=== PATIENT | female | born 1990 | race Caucasian/White ===

== ENCOUNTER 2017-03-31 02:05 | Inpatient (IN) | payer OTHER ==
[2017-03-31 02:19] VITALS: BMI 20.9
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
[2017-03-31] MEDS ORDERED: ACETAMINOPHEN 1000 MG/100 ML VIAL (NON FORMULARY) IVPB ONE (02:45)
[2017-03-31] MEDS ORDERED: ACETAMINOPHEN INJECTION 100 ML IVPB ONE (03:04)
[2017-03-31 03:06] LABS: BASOPHIL 0.3 % (0-2.0); EOSINOPHIL 0.8 % (0-4.5); MCH 26.8 pg (25.7-33.7); MCHC 32.8 g/dl (32.0-36.0); MEAN CELL VOLUME 81.6 fl (80-96); MEAN PLT VOLUME 7.8 fl (7.5-11.1); NEUTROPHILS 55.3 % (42.8-82.8); PLATELET COUNT 199 K/MM3 (134-434); RDW 12.9 % (11.6-15.6); WHITE BLOOD COUNT 5.2 K/mm3 (4.0-10.0)
[2017-03-31 03:28] LABS: ANION GAP 5 (8-16); CALCIUM 8.7 mg/dL (8.5-10.1); CO2 29 mmol/L (21-32); CREATININE 0.6 mg/dL (0.55-1.02); GLUCOSE,RANDOM 106 mg/dL (74-106)
--- NOTE | 2017-03-31 04:24 | PDOC ---
Attending Attestation - Resident Resident Name: Jerel Souzaica - ED Attending Attestation I have performed the following: I have examined & evaluated the patient, The case was reviewed & discussed with the resident, I agree w/resident's findings & plan, Exceptions are as noted - HPI HPI: 03/31/17 04:22 26 yo F presenting to the ER with severe RLQ pain Pt states she has had vaginal bleeding for the past 2 weeks - initially, she had a period followed b spotting She had a sudden onset severe RLQ pain She is does not think that she is - Physicial Exam PE: 03/31/17 04:23 Pt appears to be in pain Right lower abd tenderness No abdominal distention - Critical Care Time Total Critical Care Time: 60 Critical Care Statement: The care of this patient involved high complexity decision making to prevent further life threatening deterioration of the patient 's condition and/or to evalute & treat vital organ system(s) failure or risk of failure. - Medical Decision Making 03/31/17 04:24 Will do labs Will do US Will give Tylenol for pain Will re assess 03/31/17 04:24 Laboratory Tests 03/31/17 03/31/17 03/31/17 02:45 02:57 02:57 WBC 5.2 Hgb 11.6 Hct 35.2 Plt Count 199 BUN 8 Creatinine 0.6 Beta HCG, Quant 6172.4 Serum , Qual Blood Type O POSITIVE 03/31/17 02:57 WBC Hgb Hct Plt Count BUN Creatinine Beta HCG, Quant Serum , Qual Positive Blood Type 03/31/17 04:46 Called by radiology Pt has 5 week 3 day in Right fallopian tube FHR 103 bpm 03/31/17 04:58 03/31/17 05:[address] Lorraine ASLHEY He will see her in the ER Admit to his service Discharge Disposition - Diagnosis Ectopic , tubal Qualifiers: Intrauterine status: without intrauterine Qualified Code(s) : O00.10 - Tubal without intrauterine - Discharge Dispostion Disposition: HOME Condition at time of disposition: Guarded Admit: Yes - Prescriptions
--- NOTE | 2017-03-31 09:51 | HP ---
Past Medical History - Primary Care Physician PCP:: Aneudy Peters - Admission Chief Complaint: RLQ pain, vaginal bleeding, History of Present Illness: 26 yo f c/o RLQ pain and vaginal bleeding for 3 weeks, positve test, sono live iup in rt tube .admitted for laparoscopy RT salpingectomy, risks of procedure blweeding, injury to vesseles, bowel, bladder , nerve, ,loss of allopian tube, infertility anesthesia risks, post op complication, disussed, ulternatives metothrexate discused , agreed to have salpingectomy History Source: Patient Limitations to Obtaining History: No Limitations - Past Medical History ...: 2 ...Para: 1 Additional OB History: post hemorrhage and PIH with last Infectious Disease: Yes: Other (had iud with PID, iud was removed) - Past Surgical History Hx Myomectomy: No Hx Transabdominal Cerclage: No - Smoking History Smoking history: Never smoked Have you smoked in the past 12 months: No - Alcohol/Substance Use Hx Alcohol Use: Yes (SOCIAL) - Social History History of Recent Travel: No Home Medications - Allergies Allergies/Adverse Reactions: Allergies Allergy/AdvReac Type Severity Reaction Status Date / Time No Known Allergies Allergy Verified 03/31/17 02:17 - Home Medications Home Medications: Ambulatory Orders NK [No Known Home Medication] 03/31/17 Review of Systems - Review of Systems Eyes: reports: No Symptoms HENT: reports: No Symptoms Neck: reports: No Symptoms Cardiovascular: reports: No Symptoms Respiratory: reports: No Symptoms Genitourinary: reports: Vaginal Bleeding Breasts: reports: No Symptoms Reported Musculoskeletal: reports: No Symptoms Integumentary: reports: No Symptoms Neurological: reports: No Symptoms Endocrine: reports: No Symptoms Psychiatric: reports: No Symptoms 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 Vital Signs: Vital Signs Temperature 99 F 03/31/17 07:57 Pulse Rate 66 03/31/17 07:57 Respiratory Rate 20 03/31/17 07:57 Blood Pressure 99/59 03/31/17 07:57 O2 Sat by Pulse Oximetry (%) 99 03/31/17 07:04 Constitutional: Yes: Well Nourished, No Distress, Calm Eyes: Yes: WNL, Conjunctiva Clear, EOM Intact HENT: Yes: WNL, Atraumatic, Normocephalic Neck: Yes: WNL, Supple, Trachea Midline Cardiovascular: Yes: WNL, Regular Rate and Rhythm Respiratory: Yes: WNL, Regular, CTA Bilaterally Gastrointestinal: Yes: WNL ...Rectal Exam: Yes: WNL Renal/: Yes: WNL Pelvis: Yes: WNL External Genitalia: Yes: Normal Internal Exam Deferred: No Vaginal Exam: Yes: Bleeding Cervix: Yes: Normal Uterus: Yes: Normal, Tender Adnexa: Tender: Right, Left, Not Palpable: Right, Left Breast(s): Yes: WNL Musculoskeletal: Yes: WNL Extremities: Yes: WNL Edema: No Integumentary: Yes: WNL Neurological: Yes: WNL, Alert, Oriented ...Motor Strength: WNL Psychiatric: Yes: WNL, Alert, Oriented Problem List - Problem (1) Ectopic , tubal Code(s): O00.10 - TUBAL WITHOUT INTRAUTERINE Qualifiers: Intrauterine status: without intrauterine Qualified Code(s): O00.10 - Tubal without intrauterine (2) Vaginal bleeding Code(s): N93.9 - ABNORMAL UTERINE AND VAGINAL BLEEDING, UNSPECIFIED Assessment/Plan plan d&C laparoscopic RT salpingectomy. RBA discussed
[2017-03-31] MEDS ORDERED: LIDOCAINE HCL/PF 2% SDV 5ML VIAL ONE (10:00)
[2017-03-31] MEDS ORDERED: ROCURONIUM BROMIDE 50 MG/5 ML VIAL ONE (10:01)
[2017-03-31] MEDS ORDERED: DEXAMETHASONE SOD PHOSPHATE 4 MG/1 ML VIAL ONE ×2 (10:01→10:37)
[2017-03-31] MEDS ORDERED: PROPOFOL 20 ML ONE (10:01)
[2017-03-31] MEDS ORDERED: ceFAZolin SODIUM 1 GM VIAL IVPB ONE (10:22)
[2017-03-31] MEDS ORDERED: ceFAZolin SODIUM 1 GM VIAL ONE (10:22)
[2017-03-31] MEDS ORDERED: NEOSTIGMINE METHYLSULFATE 0.5 MG/ML - 10 ML MDV ONE (10:43)
[2017-03-31] MEDS ORDERED: GLYCOPYRROLATE 0.2 MG/1 ML VIAL ONE (10:43)
[2017-03-31] MEDS ORDERED: ONDANSETRON 4 MG/2 ML VIAL IVPB PRN (11:24)
[2017-03-31] MEDS ORDERED: oxyCODONE HCL 5 MG TABLET PO PRN (11:24)
[2017-03-31] MEDS ORDERED: ELECTROLYTE-148 SOLN 1,000 ML IV SCH (11:30)
[2017-03-31] MEDS ORDERED: IBUPROFEN 800 MG/8 ML IJ IVPB ONE (11:54)
[2017-03-31] MEDS: IBUPROFEN 800 MG/8 ML IJ IVPB PRN ×2 (12:00→22:15)
[2017-03-31] MEDS ORDERED: HYDROmorphone HCL CARPU-JECT 1 MG/1 ML DISP.SYRIN IVPUSH PRN (12:05)
[2017-03-31] MEDS ORDERED: HYDROmorphone HCL CARPU-JECT 2 MG/1 ML DISP.SYRIN ONE (12:10)
[2017-03-31] MEDS ORDERED: PROMETHAZINE HCL 25 MG/1 ML VIAL IVPUSH PRN (12:21)
[2017-03-31 17:45] LABS: MCH 26.8 pg (25.7-33.7); MCHC 32.4 g/dl (32.0-36.0); MEAN CELL VOLUME 82.7 fl (80-96); NEUTROPHILS 93.1 % (42.8-82.8); PLATELET COUNT 172 K/MM3 (134-434); RDW 12.8 % (11.6-15.6); WHITE BLOOD COUNT 5.2 K/mm3 (4.0-10.0)
[2017-03-31] MEDS: DEXTROSE 5%-LACTATED RINGERS 1,000 ML IV SCH (20:40)
--- NOTE | 2017-03-31 22:24 | PN ---
Teaching Attending Note Name of Resident: Karine Crawley ATTENDING PHYSICIAN STATEMENT I saw and evaluated the patient. I reviewed the resident's note and discussed the case with the resident. I agree with the resident's findings and plan as documented. SUBJECTIVE: 26 yo F S/ P RT salpingectomy POD0, who presents with right chest wall pain. States pain started 1 hr ago and was sharp and constant. Pain did not vary with inspiration. No shortness of breath. No N/V/D. OBJECTIVE: Physical: VS: Vital Signs Period Temp Pulse Resp BP Sys/Jacques Pulse Ox Last 24 Hr 97.5 F-99 F 62-85 16-20 86-110/45-70 99-100 GEN: NAD, Resting in bed, able to speak full sentences HEENT: NCAT, PERRL CARD: RRR S1, S2 RESP: CTAB, Chest wall pain on right on palpation ABD: BSX4, NTD to palpation EXT: - C/C/E CBCD WBC 5.2 K/mm3 (4.0-10.0) 03/31/17 17:30 RBC 4.09 M/mm3 (3.60-5.2) 03/31/17 17:30 Hgb 11.0 GM/dL (10.7-15.3) 03/31/17 17:30 Hct 33.8 % (32.4-45.2) 03/31/17 17:30 MCV 82.7 fl (80-96) 03/31/17 17:30 MCHC 32.4 g/dl (32.0-36.0) 03/31/17 17:30 RDW 12.8 % (11.6-15.6) 03/31/17 17:30 Plt Count 172 K/MM3 (134-434) 03/31/17 17:30 MPV 8.0 fl (7.5-11.1) 03/31/17 17:30 CMP Sodium 139 mmol/L (136-145) 03/31/17 02:57 Potassium 4.0 mmol/L (3.5-5.1) 03/31/17 02:57 Chloride 105 mmol/L (98-107) 03/31/17 02:57 Carbon Dioxide 29 mmol/L (21-32) 03/31/17 02:57 Anion Gap 5 (8-16) L 03/31/17 02:57 BUN 8 mg/dL (7-18) 03/31/17 02:57 Creatinine 0.6 mg/dL (0.55-1.02) 03/31/17 02:57 Random Glucose 106 mg/dL (74-106) 03/31/17 02:57 Calcium 8.7 mg/dL (8.5-10.1) 03/31/17 02:57 EKG: NSR no acute ST-T changes ASSESSMENT AND PLAN: 26 F POD 0 S/P R.. Salphingectomy with chest wall pain 1.) Atypical Chest Pain- Most likley costochondritis - Recc. NSAIDS for chest wall pain - Trop/CXR - Will Monitor - Thank you for consult
--- NOTE | 2017-03-31 23:35 | CONSULT ---
Consultation: REQUESTING PROVIDER: CONSULT REQUEST: We have been asked to medically evaluate this patient for chest pain. HISTORY OF PRESENT ILLNESS: 26yo woman with PMH of asmtha, PID, s/p laparoscopic RT salpingectomy and D &C for ectopic earlier today who c/o chest pain radiating to her right side this evening. She described her chest as feeling "tight" with a sharp pain along RT costal margin for the past 1 hour. The pain is constant, but intermittent in severity, at its worst 8/10. Pain is worse when she inhales. She denies any prior similar episodes. She endorses SOB, but denies any palpitations, dizziness, or lightheadedness. No nausea or vomiting. No BM since the surgery, but she has passed gas. REVIEW OF SYSTEMS: CONSTITUTIONAL: Absent: fever, chills, diaphoresis, generalized weakness, malaise, loss of appetite, weight change HEENT: Absent: rhinorrhea, nasal congestion, throat pain, throat swelling, difficulty swallowing, mouth swelling, ear pain, eye pain, visual changes CARDIOVASCULAR: +chest pain Absent: chest pain, syncope, palpitations, irregular heart rate, lightheadedness , peripheral edema RESPIRATORY: Absent: cough, shortness of breath, dyspnea with exertion, orthopnea, wheezing, stridor, hemoptysis GASTROINTESTINAL: Absent: abdominal pain, abdominal distension, nausea, vomiting , diarrhea, constipation, melena, hematochezia GENITOURINARY: Absent: dysuria, frequency, urgency, hesitancy, hematuria, flank pain, genital pain MUSCULOSKELETAL: Absent: myalgia, arthralgia, joint swelling, back pain, neck pain SKIN: Absent: rash, itching, pallor HEMATOLOGIC/IMMUNOLOGIC: Absent: easy bleeding, easy bruising, lymphadenopathy, frequent infections ENDOCRINE: Absent: unexplained weight gain, unexplained weight loss, heat intolerance, cold intolerance NEUROLOGIC: Absent: headache, focal weakness or paresthesias, dizziness, unsteady gait, seizure, mental status changes, bladder or bowel incontinence PSYCHIATRIC: Absent: anxiety, depression, suicidal or homicidal ideation, hallucinations. PHYSICAL EXAMINATION Vital Signs 03/31/17 03/31/17 03/31/17 13:05 17:07 21:26 Temperature 97.5 F L 97.6 F 98.9 F Pulse Rate 67 63 62 Pulse Rate [ Left] Respiratory 18 16 18 Rate Blood Pressure 105/53 86/51 105/60 Blood Pressure [Left] O2 Sat by Pulse 100 100 Oximetry (%) GENERAL: Awake, alert, and fully oriented, in no acute distress. HEAD: Normal with no signs of trauma. EYES: Pupils equal, round and reactive to light, extraocular movements intact, sclera anicteric, conjunctiva clear. EARS, NOSE, THROAT: Oropharynx clear without exudates. Moist mucous membranes. NECK: Supple, no cervical LAD LUNGS: ctab, no wheezes, rhonchi or crackles HEART: Regular rate and rhythm, normal S1 and S2 without murmur, rub or gallop. ABDOMEN: Soft, normoactive bowel sounds, non-erythetmous laparoscopic incisions at umbilicus and lower left MUSCULOSKELETAL: Sternum/ RT costal margin tender to palpation. UPPER EXTREMITIES: 2+ pulses, warm, well-perfused. No cyanosis. No clubbing. Cap refill <2 seconds. No peripheral edema. LOWER EXTREMITIES: 2+ pulses, warm, well-perfused. No peripheral edema. NEUROLOGICAL: Grossly intact, but formally tested. PSYCHIATRIC: Cooperative. Good eye contact. Appropriate mood and affect. SKIN: Warm, dry, normal turgor, no rashes or lesions noted. Laboratory Results - last 24 hr 03/31/17 17:30 WBC 5.2 RBC 4.09 Hgb 11.0 Hct 33.8 MCV 82.7 MCH 26.8 MCHC 32.4 RDW 12.8 Plt Count 172 MPV 8.0 Neutrophils % 93.1 H D Lymphocytes % 5.8 L D Monocytes % 1.1 L D Eosinophils % 0.0 D Basophils % 0.0 Active Medications Generic Name Dose Route Start Last Admin Trade Name Freq PRN Reason Stop Dose Admin Dextrose/Lactated Ringer's 1,000 mls @ 125 mls/hr 03/31/17 21:00 03/31/17 20:40 D5-Lr - IV 125 mls/hr ASDIR INES Administration Ibuprofen 600 mg 03/31/17 11:24 Motrin - PO Q6H PRN FEVER Ibuprofen 800 mg 03/31/17 11:24 03/31/17 22:15 Caldolor Injection - IVPB 800 mg Q6H PRN Administration PAIN Ondansetron HCl 4 mg 03/31/17 11:24 Zofran Injection IVPB Q6H PRN NAUSEA Oxycodone HCl 5 mg 03/31/17 11:24 Roxicodone - PO Q4H PRN PAIN ASSESSMENT/PLAN: 26yo woman who is s/p lap salpingectomy and D&C earlier today for ectopic who c/o of chest pain radiating to her right side that is unlikely to be cardiac in origin and more c/w with costochondritis. Her VS are stable (no tachycardia, SpO2 100% on 2L NC), and her EKG shows normal sinus rhythm (VR 78 bpm). Her physical exam is notable for reproducible tenderness upon palpation of her sternum and RT costal margin. Her lungs are CTAB without wheezes making asthma exacerbation unlikely. PE is unlikely as she is satting well and her Well 's score is 1.5 (recent surgery), correlating to a low pre-test probability. #chest pain -EKG - normal sinus rhythm, Vent rate 78bpm, normal axis, UT 126ms, QRS 90ms, QTc 440ms, no wave abnormalities -Troponin - negative (<0.02) -CXR 04/01/17: no pneumthorax, pleural effusion, or consolidations -Start Ibuprofen 800mg IVPB Q6H PRN as anti-inflammatory and pain control Dispo: We will continue to follow the patient. Thank you for this consultative opportunity. PRICILLA PATEL MD, PGY-1 Visit type - Emergency Visit Emergency Visit: No - New Patient This patient is new to me today: Yes Date on this admission: 04/01/17 - Critical Care Critical Care patient: No
[2017-04-01] MEDS: IBUPROFEN 600 MG TABLET (FP) PO PRN ×2 (04:57→10:58)
[2017-04-01] MEDS: DEXTROSE 5%-LACTATED RINGERS 1,000 ML IV SCH (04:57)
--- NOTE | 2017-04-01 07:31 | PN ---
Progress Note (short form) - Note Progress Note: doing well, no chest pain, mild incisional discomfort , ambulating, tolorating clear diet CBC, BMP 03/31/17 17:30 03/31/17 02:57 Last Vital Signs Temp Pulse Resp BP Pulse Ox 98.8 F 58 L 18 78/43 100 04/01/17 04:54 04/01/17 04:54 04/01/17 04:54 04/01/17 04:54 03/31/17 13:05 abdomen soft, no distension, no cva incision dry, clean no calf tenderness plan advance diet, oob d/c home follow up 2 weeks in [facility] care Problem List - Problems (1) Ectopic , tubal Code(s): O00.10 - TUBAL WITHOUT INTRAUTERINE Qualifiers: Intrauterine status: without intrauterine Qualified Code(s): O00.10 - Tubal without intrauterine (2) Vaginal bleeding Code(s): N93.9 - ABNORMAL UTERINE AND VAGINAL BLEEDING, UNSPECIFIED
--- NOTE | 2017-04-01 07:32 | DS ---
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: Vital Signs Temperature 98.8 F 04/01/17 04:54 Pulse Rate 58 L 04/01/17 04:54 Respiratory Rate 18 04/01/17 04:54 Blood Pressure 78/43 04/01/17 04:54 O2 Sat by Pulse Oximetry (%) 100 03/31/17 13:05 Constitutional: Yes: Well Nourished, No Distress, Calm Eyes: Yes: WNL, Conjunctiva Clear, EOM Intact HENT: Yes: WNL, Atraumatic, Normocephalic Neck: Yes: WNL, Supple, Trachea Midline Cardiovascular: Yes: WNL, Regular Rate and Rhythm Respiratory: Yes: WNL, Regular, CTA Bilaterally Gastrointestinal: Yes: WNL ...Rectal Exam: Yes: WNL Renal/: Yes: WNL Breast(s): Yes: WNL Musculoskeletal: Yes: WNL Extremities: Yes: WNL Integumentary: Yes: WNL Wound/Incision: Yes: Clean/Dry, Well Approximated, Sutures Intact Neurological: Yes: WNL, Alert, Oriented ...Motor Strength: WNL Psychiatric: Yes: WNL, Alert, Oriented Labs: CBC, BMP 03/31/17 17:30 Discharge Summary Reason For Visit: ECTOPIC TUBAL Current Active Problems Ectopic , tubal (Acute) Vaginal bleeding (Acute) Procedures: Principal: D&C , lqaparoscopic RT salpingectomy Condition: Guarded - Instructions Disposition: HOME - Home Medications Comprehensive Discharge Medication List: Ambulatory Orders Ibuprofen [Motrin -] 600 mg PO QID #28 tablet 03/31/17
[2017-04-01] MEDS ORDERED: ACETAMINOPHEN 325 MG TABLET (FP) PO PRN (07:36)
[2017-04-01] MEDS ORDERED: ACETAMINOPHEN 325 MG TABLET (FP) PO ONE (07:40)
--- NOTE | 2017-04-01 11:03 | PN ---
Progress Note (short form) - Note Progress Note: Post op day#1.S/P Laproscopy with R salpingectomy under GA uneventful.Patient stable.No any anesthesia related problem.Patient DC from the anesthesia care.
--- NOTE | 2017-04-01 12:35 | EKG ---
Test Reason : Blood Pressure : / mmHG Vent. Rate : 078 BPM Atrial Rate : 078 BPM P-R Int : 126 ms QRS Dur : 090 ms QT Int : 386 ms P-R-T Axes : 071 074 050 degrees QTc Int : 440 ms NORMAL SINUS RHYTHM NORMAL ECG NO PREVIOUS ECGS AVAILABLE Confirmed by ANISHA KERN MD ([id number]) on 04/01/2017 12:35:19 PM Referred By: Confirmed By:ANISHA KERN MD
[2017-04-01 13:50] VITALS: BP 100/55; PULSE 81; TEMP 99
--- NOTE | 2017-04-02 11:21 | OP ---
DATE OF OPERATION: 03/31/2017 PREOPERATIVE DIAGNOSIS: Right tubal ectopic POSTOPERATIVE DIAGNOSIS: Right tubal ectopic PROCEDURE: Laparoscopy, right salpingectomy, and dilatation and curettage. 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 ANESTHESIOLOGIST: Atilio Teague MD ESTIMATED BLOOD LOSS: 20 mL. OPERATIVE REPORT: The patient was taken to the operating room, and under adequate general anesthesia, examination under anesthesia revealed external genitalia to be normal, vagina was normal, small amount of bleeding from the os, cervix clean, uterus normal-sized, adnexa no masses were palpable. Then, with a weighted speculum in the vagina, anterior lip of the cervix was grasped with a single-tooth tenaculum. The cervix was gradually dilated with Hegar dilator, and then, uterine cavity was gently curetted with a smooth curette. Then, Hulka was introduced into the uterine cavity. In dorsal lithotomy position, a small infraumbilical skin incision was made. Veress needle was introduced. Pneumoperitoneum was established. A 5-mm trocar was introduced. Then, under direct vision, a 10-mm trocar was introduced through the left hypergastric area, and a 5-mm through the right hypergastric area. Visualization of the pelvic organ showed about 200 mL of fluid in the cul-de-sac and in both right and left gutters, and right tube was occupied by a bluish mass almost through the whole length of the tube was infected. No adhesions. The left tube and ovary were normal. The right ovary was normal. Bladder and upper abdomen were checked, were normal. Then, the blood was suctioned from the pelvic cavity. Then, the right tube was grasped with the grasper, and with the bipolar LigaSure cautery, mesosalpinx was cauterized along the tube, and the tube was removed. Then, the EndoCatch was inserted. Then, the specimen was removed. Then, pelvic cavity was several times irrigated. No active bleeding was seen. Then, the left 10-mm port was closed with interrupted suture of 0 Vicryl. The abdomen was emptied of all the gases. All the instruments were withdrawn. Umbilical area was closed with interrupted suture of 0 Vicryl, and the skin was closed with Dermabond glue. Patient tolerated the procedure well, left the OR in good condition. AYO PETERS M.D. [id number]
--- NOTE | 2017-04-02 14:52 | PATH ---
Surgical Pathology Report Patient Name: ISRAEL ALARCON Med. Rec. 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 Specimen(s) Received A: ENDOMETRIAL CURETTINGS B: FALLOPIAN TUBE RIGHT, ECTOPIC Clinical History Ectopic Final Diagnosis A. UTERINE CURETTINGS: FRAGMENTS OF SECRETORY TYPE ENDOMETRIUM. FRAGMENTS OF BENIGN ENDOCERVICAL TISSUE. B. FALLOPIAN TUBE AND CONTENTS, RIGHT, SALPINGECTOMY: FALLOPIAN TUBE WITH ACUTE HEMORRHAGE AND CHORIONIC VILLI, CONSISTENT WITH TUBAL . Electronically Signed Neal Joshi M.D. Gross Description A. Received in formalin labeled "uterine curettings" is a 2.5 x 2.0 x 0.3 aggregate of beck-brown soft tissue fragments. The formalin is filtered and the specimen is entirely submitted in one cassette. B. Received in formalin labeled "right fallopian tube" is a 5.5 cm in length fimbriated portion of fallopian tube. The outer surface is beck-mitchell and smooth with focal attached blood clot at the fimbria. Sectioning reveals a focally dilated, hemorrhagic lumen. No definite villous tissue or somatic tissue is grossly identified. Motor Vehicle Compliance Analyst sections are submitted in 3 cassettes as follows: 1-fimbria; 2-3-cross sections of fallopian tube. /04/01/2017 [facility]04/01/2017
== END 2017-04-01 15:45 | disposition home or self-care (01) | DRG 545 ==
LOC: JER 02:05 → JERBED 05:16 → UNDOADMIN 06:06 → JERBED 06:06 → J3W 07:45
PROVIDERS: ADMIT Obstetrics & Gynecology; ATTEND Obstetrics & Gynecology
PROC: 0UT5FZZ Resection of Right Fallopian Tube, Via Natural or Artificial Opening With Percutaneous Endoscopic Assistance (ICD-10-PCS; principal; 2017-03-31 10:00)
PROC: 10D28ZZ Extraction of Products of Conception, Ectopic, Via Natural or Artificial Opening Endoscopic (ICD-10-PCS; 2017-03-31 10:00)
DX: O00.10 Tubal pregnancy without intrauterine pregnancy (principal); M94.0 Chondrocostal junction syndrome [Tietze]; J45.909 Unspecified asthma, uncomplicated; N93.9 Abnormal uterine and vaginal bleeding, unspecified
CPT/HCPCS: 36415; 71010-TC; 76830-TC; 76856-TC; 80048; 84484; 84702; 84703; 85025; 86850; 86900; 86901; 88305-TC; 93005; 93010; 94760; 99285-25

== ENCOUNTER 2017-04-08 22:59 | Emergency (ER) | payer OTHER ==
[2017-04-09 00:08] VITALS: BP 104/63; PULSE 74; TEMP 98.2; BMI 43.7
--- NOTE | 2017-04-09 00:42 | PDOC ---
History of Present Illness - General Chief Complaint: Vaginal Sxs Stated Complaint: PAIN Time Seen by Provider: 04/08/17 23:43 History Source: Patient Exam Limitations: No Limitations - History of Present Illness Initial Comments: 04/09/17 00:39 This is a 26 yo woman with PMH of D&C 1 week ago who presents with "a bump just outside my vagina." She denies vaginal bleeding, discharge or pain. She reports increased pain when she unsuccessfully tried to express fluid from site. Timing/Duration: 24 hours Severity: mild Associated Symptoms: reports: denies symptoms Past History - Travel Traveled outside of the country in the last 30 days: No Close contact w/someone who was outside of country & ill: No - Past Medical History Allergies/Adverse Reactions: Allergies Allergy/AdvReac Type Severity Reaction Status Date / Time No Known Allergies Allergy Verified 04/09/17 00:05 Home Medications: Ambulatory Orders Ibuprofen [Motrin -] 600 mg PO QID #28 tablet 03/31/17 Anemia: No Asthma: Yes Cancer: No Cardiac Disorders: No CVA: No COPD: No CHF: No Dementia: No Diabetes: No GI Disorders: No Disorders: No HTN: Yes (pi) Hypercholesterolemia: No Liver Disease: No Seizures: No Thyroid Disease: No - Surgical History Abdominal Surgery: No Appendectomy: No Cardiac Surgery: No Cholecystectomy: No Lung Surgery: No Neurologic Surgery: No Orthopedic Surgery: No - Reproductive History Is Patient Now?: No Ectopic : Yes (removed) PID: Yes - Psycho/Social/Smoking Cessation Hx Suicidal Ideation: No Smoking History: Never smoked Have you smoked in the past 12 months: No Information on smoking cessation initiated: No Hx Alcohol Use: No Drug/Substance Use Hx: No Review of Systems - Review of Systems Able to Perform ROS?: Yes Is the patient limited [place] proficient: No Constitutional: No: Symptoms Reported HEENTM: No: Symptoms Reported Respiratory: No: Symptoms reported Cardiac (ROS): No: Symptoms Reported ABD/GI: No: Symptoms Reported : No: Symptoms Reported Musculoskeletal: No: Symptoms Reported Integumentary: No: Symptoms Reported Neurological: No: Symptoms reported *Physical Exam - Vital Signs Last Vital Signs Temp Pulse Resp BP Pulse Ox 98.2 F 74 14 104/63 100 04/09/17 00:05 04/09/17 00:05 04/09/17 00:05 04/09/17 00:05 04/09/17 00:05 - Physical Exam General Appearance: Yes: Appropriately Dressed. No: Apparent Distress HEENT: positive: EMILIE, Normal ENT Inspection, Normal Voice Neck: positive: Trachea midline, Supple Respiratory/Chest: positive: Lungs Clear, Normal Breath Sounds. negative: Chest Tender, Respiratory Distress Cardiovascular: positive: Regular Rhythm, Regular Rate, S1, S2. negative: Edema , Murmur Female Pelvic Exam: positive: Bartholin mass. negative: CMT, discharge Gastrointestinal/Abdominal: positive: Normal Bowel Sounds, Tender (over left lower abdomen) Musculoskeletal: positive: Normal Inspection. 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 She reports increased pain when she unsuccessfully tried to express fluid from site. Bartholin's cyst noted on exam. No erythema present. - tylenol 650mg now - I&D *DC/Admit/Observation/Transfer Diagnosis at time of Disposition: Cyst of Bartholin's gland duct - Discharge Dispostion Disposition: HOME Condition at time of disposition: Stable Admit: No - Patient Instructions Printed Discharge Instructions: DI for Bartholin Gland Cyst Additional Instructions: Keep appointment with your production clerk as previously scheduled. Warm sitz baths as needed for pain. Return to ER for any concerns.
[2017-04-09] MEDS ORDERED: LIDOCAINE HCL 2% (20ML MULTI-DOSE VIAL) NR ONE (00:47)
[2017-04-09] MEDS ORDERED: ACETAMINOPHEN 325 MG TABLET (FP) PO ONE (01:41)
[2017-04-09] MEDS ORDERED: ACETAMINOPHEN 325 MG TABLET (FP) ONE (01:47)
== END 2017-04-09 02:21 | disposition home or self-care (01) ==
LOC: JER 22:59
PROC: 0U9LXZZ Drainage of Vestibular Gland, External Approach (ICD-10-PCS; principal; 2017-04-08)
DX: N75.0 Cyst of Bartholin's gland (principal)
CPT/HCPCS: 56420; 99282-25

== ENCOUNTER 2017-05-31 12:08 | Emergency (ER) | payer OTHER ==
[2017-05-31 12:17] VITALS: TEMP 98.4; BMI 21.2
--- NOTE | 2017-05-31 13:11 | PDOC ---
History of Present Illness - General History Source: Patient Exam Limitations: No Limitations - History of Present Illness Initial Comments: 05/31/17 14:53 The patient is a 26 year old female, , with a significant past medical history of ectopic (removal of the left tube during last 2016) who presents to the emergency department with lightheadedness since last night and RLQ for few days. Patient states that she started experiencing lightheadedness last night that has worsened since this morning. She denies any headache or visual changes. She states that her BP at pharmacy was 89/60 where she was prompted to present to the ED. She also reports RLQ abdominal pain for few days. She reports possibility of being , her LMP was in the beginning of April 2017. She reports anemia and preeclampsia during last 8 years ago. Patient also notes she has recently become vegetarian and denies taking any vitamins. She denies any nausea, vomiting, diarrhea, constipation, hematuria, vaginal bleeding or discharge. She denies chest pain and shortness of breath. She denies fever, chills, headache and dizziness. She denies dysuria, frequency, urgency. <Carmel Moore - Last Filed: 05/31/17 14:53> <Freda Waddell - Last Filed: 05/31/17 16:04> - General Chief Complaint: Lightheaded Stated Complaint: HEADACHES Time Seen by Provider: 05/31/17 13:08 Past History <Carmel Moore - Last Filed: 05/31/17 14:53> - Past Medical History Anemia: No Asthma: Yes Cancer: No Cardiac Disorders: No CVA: No COPD: No CHF: No Dementia: No Diabetes: No GI Disorders: No Disorders: No HTN: Yes (pih) Hypercholesterolemia: No Liver Disease: No Seizures: No Thyroid Disease: No - Surgical History Abdominal Surgery: No Appendectomy: No Cardiac Surgery: No Cholecystectomy: No Lung Surgery: No Neurologic Surgery: No Orthopedic Surgery: No - Reproductive History Ectopic : Yes (removed) PID: Yes - Immunization History Immunization Up to Date: No - Psycho/Social/Smoking Cessation Hx Anxiety: No Suicidal Ideation: No Smoking History: Never smoked Have you smoked in the past 12 months: No Information on smoking cessation initiated: No Hx Alcohol Use: No Drug/Substance Use Hx: No Substance Use Type: None <Freda Waddell - Last Filed: 05/31/17 16:04> - Past Medical History Allergies/Adverse Reactions: Allergies Allergy/AdvReac Type Severity Reaction Status Date / Time No Known Allergies Allergy Verified 05/31/17 12:13 Home Medications: Ambulatory Orders NK [No Known Home Medication] 05/31/17 Review of Systems - Review of Systems Able to Perform ROS?: Yes Comments:: 05/31/17 14:53 GENERAL/CONSTITUTIONAL: No fever or chills. No weakness. HEAD, EYES, EARS, NOSE AND THROAT: No change in vision. No ear pain or discharge. No sore throat. GASTROINTESTINAL: +abdominal pain. No nausea, vomiting, diarrhea or constipation. GENITOURINARY: No dysuria, frequency, or change in urination. CARDIOVASCULAR: +lightheadedness. No chest pain or shortness of breath. RESPIRATORY: No cough, wheezing, or hemoptysis. MUSCULOSKELETAL: No joint or muscle swelling or pain. No neck or back pain. SKIN: No rash NEUROLOGIC: No headache, vertigo, loss of consciousness, or change in strength/ sensation. ENDOCRINE: No increased thirst. No abnormal weight change. HEMATOLOGIC/LYMPHATIC: No easy bleeding, or history of blood clots. ALLERGIC/IMMUNOLOGIC: No hives or skin allergy. <Carmel Moore - Last Filed: 05/31/17 14:53> *Physical Exam - Vital Signs Last Vital Signs Temp Pulse Resp BP Pulse Ox 98.4 F 89 16 111/62 99 05/31/17 12:13 05/31/17 12:13 05/31/17 12:13 05/31/17 12:13 05/31/17 12:13 - Physical Exam Comments: 05/31/17 14:53 GENERAL: Awake, alert, and fully oriented, in no acute distress HEAD: No signs of trauma EYES: PERRLA, EOMI, sclera anicteric, conjunctiva clear ENT: Auricles normal inspection, hearing grossly normal, nares patent, oropharynx clear without exudates. Moist mucosa NECK: Normal ROM, supple, no lymphadenopathy, JVD, or masses LUNGS: Breath sounds equal, clear to auscultation bilaterally. No wheezes, and no crackles HEART: Regular rate and rhythm, normal S1 and S2, no murmurs, rubs or gallops ABDOMEN: (+) RLQ tenderness to palpation. Negative rovsings and psoas signs. Soft, normoactive bowel sounds. No guarding, no rebound. No masses EXTREMITIES: Normal range of motion, no edema. No clubbing or cyanosis. No cords , erythema, or tenderness NEUROLOGICAL: Normal speech, cranial nerves intact, negative pronator drift, 5/ 5 strength in all 4 extremities, normal sensation to light touch in all 4 extremities, normal cerebellar exam, normal gait, normal reflexes and tone SKIN: Warm, Dry, normal turgor, no rashes or lesions noted. <Carmel Moore - Last Filed: 05/31/17 14:53> - Vital Signs Last Vital Signs Temp Pulse Resp BP Pulse Ox 98.4 F 89 16 111/62 99 05/31/17 12:13 05/31/17 12:13 05/31/17 12:13 05/31/17 12:13 05/31/17 12:13 <Ferda Waddell - Last Filed: 05/31/17 16:04> ED Treatment Course - LABORATORY CBC & Chemistry Diagram: 05/31/17 14:00 05/31/17 14:00 - ADDITIONAL ORDERS Additional order review: Laboratory Results 05/31/17 05/31/17 05/31/17 14:08 14:00 14:00 Sodium Potassium Chloride Carbon Dioxide Anion Gap BUN Creatinine Creat Clearance w eGFR Random Glucose Lactic Acid 0.4 Calcium Magnesium 2.3 Total Bilirubin AST ALT Alkaline Phosphatase Total Protein Albumin Beta HCG, Quant Urine Color Urine Appearance Urine pH Urine Protein Urine Glucose (UA) Urine Ketones Urine Blood Urine Nitrite Urine Bilirubin Urine Urobilinogen Urine HCG, Qual Negative 05/31/17 05/31/17 14:00 14:00 Sodium 138 Potassium 4.5 Chloride 104 Carbon Dioxide 26 Anion Gap 8 BUN 10 D Creatinine 0.6 Creat Clearance w eGFR > 60 Random Glucose 93 Lactic Acid Calcium 8.7 Magnesium Total Bilirubin 0.6 AST 33 ALT 29 Alkaline Phosphatase 44 L Total Protein 7.3 Albumin 4.0 Beta HCG, Quant < 1.0 Urine Color Yellow Urine Appearance Cloudy Urine pH 8.0 Urine Protein Negative Urine Glucose (UA) Negative Urine Ketones Negative Urine Blood Negative Urine Nitrite Negative Urine Bilirubin Negative Urine Urobilinogen Negative Urine HCG, Qual 05/31/17 14:00 RBC 4.55 MCV 81.7 MCHC 33.3 RDW 12.8 MPV 8.0 Neutrophils % 52.4 D Lymphocytes % 35.6 D Monocytes % 10.5 H D Eosinophils % 1.0 D Basophils % 0.5 D <Carmel Moore - Last Filed: 05/31/17 14:53> - LABORATORY CBC & Chemistry Diagram: 05/31/17 14:00 05/31/17 14:00 <Freda Waddell - Last Filed: 05/31/17 16:04> Medical Decision Making - Medical Decision Making 05/31/17 14:25 26yo F p/w RLQ pain. Vitals unremarkable, including normal BP. Exam with no abd RLQ ttp but mild R adnexal ttp. UPT negative. Possible ovarian cyst. Also on ddx is torsion although unlikely as pt appears comfortable. Unlikely appy as pt does not have RLQ ttp on exam. -labs -UA -TVUS -reassess 05/31/17 15:38 Labs unremarkable. UA negative. TVUS with 1cm R sided ovarian cyst vs follicle, pain possibly 2/2 [place]mirt[place] vs ovarian cyst. Pt feels better, has not had any lightheadness in the ED. Ambulates with a steady gait. TOlerating PO, requests to go home. I discussed the physical exam findings, ancillary test results and final diagnoses with the patient. I answered all of the patient's questions. The patient was satisfied with the care received and felt comfortable with the discharge plan and treatment plan. The patient will call their primary care physician within 24 hours to arrange follow-up and will return to the Emergency Department with any new, persistent or worsening symptoms. <Freda Waddell - Last Filed: 05/31/17 16:04> *DC/Admit/Observation/Transfer - Attestations Scribe Attestion: 05/31/17 14:54 Documentation prepared by SIMONE Szymanski, acting as mobile paramedical examiner for Freda Waddell MD. <Carmel Moore - Last Filed: 05/31/17 14:53> - Discharge Dispostion Admit: No - Attestations Physician Attestion: 05/31/17 16:02 IDr. Freda MD, attest that this document has been prepared under my direction and personally reviewed by me in its entirety. I further attest, that it accurately reflects all work, treatment, procedures and medical decision -making performed by me. <Freda Waddell - Last Filed: 05/31/17 16:04> Diagnosis at time of Disposition: Abdominal pain Qualifiers: Abdominal location: unspecified location Qualified Code(s): R10.9 - Unspecified abdominal pain - Discharge Dispostion Disposition: HOME Condition at time of disposition: Stable - Patient Instructions Printed Discharge Instructions: DI for Ovarian Cyst Additional Instructions: Please follow up with your [employer] [facility] doctor within 1 week. Return to the emergency department immediately for any new or concerning symptoms or if your symptoms get worse. Thank you for coming to the Emergency Department today for your care. It was a pleasure to see you today. Please note that your evaluation is INCOMPLETE until you follow-up with your doctor.
[2017-05-31 14:12] LABS: BASOPHIL 0.5 % (0-2.0); MCH 27.2 pg (25.7-33.7); MCHC 33.3 g/dl (32.0-36.0); MEAN CELL VOLUME 81.7 fl (80-96); NEUTROPHILS 52.4 % (42.8-82.8); PLATELET COUNT 230 K/MM3 (134-434); RDW 12.8 % (11.6-15.6)
[2017-05-31 14:19] LABS: URINE APPEARANCE CLOUDY; URINE BILIRUBIN NEGATIVE (NEGATIVE); URINE BLOOD NEGATIVE (NEGATIVE); URINE COLOR YELLOW; URINE GLUCOSE (UA) NEGATIVE (NEGATIVE); URINE KETONE NEGATIVE (NEGATIVE); URINE LEUK ESTERASE NEGATIVE (NEGATIVE); URINE NITRITE NEGATIVE (NEGATIVE); URINE PROTEIN NEGATIVE (NEGATIVE); URINE UROBILINOGEN NEGATIVE mg/dL (0.2-1.0)
[2017-05-31 14:32] LABS: ANION GAP 8 (8-16); CALCIUM 8.7 mg/dL (8.5-10.1); CO2 26 mmol/L (21-32); CREATININE 0.6 mg/dL (0.55-1.02); GLUCOSE,RANDOM 93 mg/dL (74-106)
[2017-05-31 14:40] LABS: ALK PHOS 44 U/L (45-117); BILIRUBIN,TOTAL 0.6 mg/dL (0.2-1.0); SGPT/ALT 29 U/L (12-78); TOT PROT 7.3 g/dl (6.4-8.2)
[2017-05-31 14:43] LABS: SGOT/AST 33 U/L (15-37)
[2017-05-31 15:58] VITALS: BP 118/65; PULSE 70
--- NOTE | 2017-06-03 16:57 | EKG ---
Test Reason : Blood Pressure : / mmHG Vent. Rate : 070 BPM Atrial Rate : 070 BPM P-R Int : 126 ms QRS Dur : 090 ms QT Int : 368 ms P-R-T Axes : 073 077 060 degrees QTc Int : 397 ms NORMAL SINUS RHYTHM WITH SINUS ARRHYTHMIA NORMAL ECG WHEN COMPARED WITH ECG OF 31-MAR-2017 22:11, NO SIGNIFICANT CHANGE WAS FOUND Confirmed by ANISHA KERN MD ([id number]) on 06/03/2017 4:57:37 PM Referred By: Confirmed By:ANISHA KERN MD
== END 2017-05-31 16:01 | disposition home or self-care (01) ==
LOC: JER 12:08
DX: R10.9 Unspecified abdominal pain (principal); N83.201 Unspecified ovarian cyst, right side
CPT/HCPCS: 36415; 76817-TC; 80053; 81003; 83605; 83735; 84702; 84703; 85025; 86850; 86900; 86901; 87086; 93005; 93010; 99285-25

== ENCOUNTER 2017-09-02 22:13 | Emergency (ER) | payer OTHER ==
[2017-09-02 22:32] VITALS: BP 110/68; PULSE 78; TEMP 98.4; BMI 21.7
--- NOTE | 2017-09-02 23:42 | PDOC ---
History of Present Illness - General Chief Complaint: Pain, Acute Stated Complaint: PAIN, ACUTE Time Seen by Provider: 09/02/17 23:36 - History of Present Illness Initial Comments: 09/03/17 00:05 27 years old status post ectopic 03/31/2017 resents to the emergency department with several week history of nausea lower abdominal discomfort constant worse with meals no fever no vomiting no diarrhea doesn't endorse increased thirst and increased urinary symptoms frequency and small voiding amounts. Symptoms are moderate 6 out of 10 Past History - Past Medical History Allergies/Adverse Reactions: Allergies Allergy/AdvReac Type Severity Reaction Status Date / Time No Known Allergies Allergy Verified 05/31/17 12:13 Home Medications: Ambulatory Orders NK [No Known Home Medication] 05/31/17 Anemia: No Asthma: Yes Cancer: No Cardiac Disorders: No CVA: No COPD: No CHF: No Dementia: No Diabetes: No GI Disorders: No Disorders: No HTN: Yes (pih) Hypercholesterolemia: No Liver Disease: No Seizures: No Thyroid Disease: No - Surgical History Abdominal Surgery: No Appendectomy: No Cardiac Surgery: No Cholecystectomy: No Lung Surgery: No Neurologic Surgery: No Orthopedic Surgery: No - Reproductive History (#): 4 Para: 1 Ectopic : Yes (removed) PID: Yes Therapeutic (s) & number: Yes (X2) - Immunization History Immunization Up to Date: No - Suicide/Smoking/Psychosocial Hx Smoking History: Never smoked Have you smoked in the past 12 months: No Hx Alcohol Use: No Drug/Substance Use Hx: No Substance Use Type: None Review of Systems - Review of Systems Able to Perform ROS?: No Comments:: 09/03/17 00:07 ROS: A complete review of 10 out of 10 review of systems is taken and is negative apart from what is previously mentioned below and in the HPI. Is the patient limited [place] proficient: No *Physical Exam - Vital Signs Last Vital Signs Temp Pulse Resp BP Pulse Ox 98.4 F 78 16 110/68 100 09/02/17 22:26 09/02/17 22:26 09/02/17 22:26 09/02/17 22:26 09/02/17 22:26 - Physical Exam Comments: 09/03/17 00:07 Vitals: Triage Vital signs reviewed General Appearance: no acute distress, well nourished well developed, Head: Atraumatic, Eyes: Pupils equal reactive round, extraocular movement intact Chest Wall: Nontender Cardiac: Regular rate and rhythym, no murmurs, no rubs, no gallops, Lungs: Clear to auscultation bilateral, good air movement bilaterally, Abdomen: Soft, non distended, normal bowel sounds, non tender to palpation Genitourinary: No CMT no discharge mild bilateral adnexal tenderness Rectal: Exam deferred Extremities: Full range of motion to all extremities, no cyanosis, clubbing, or edema Skin: Warm and dry, no rashes or lesions, no rash, no petechiae ED Treatment Course - LABORATORY CBC & Chemistry Diagram: 09/03/17 00:18 09/03/17 00:18 Medical Decision Making - Medical Decision Making 09/03/17 00:08 Well-appearing no apparent distress with 2 week history of mild adnexal tenderness low suspicion for acute surgical pathology given duration of symptomatology we'll check labs urinalysis transvaginal ultrasound and reassess 09/03/17 02:31 Repeat abdominal examination, no abdominal tenderness palpation. No fever no white count no acute findings on pelvis CT urinalysis unremarkable. At this time no emergent medical condition identified. Pt. with greater than 1 wk hx of sx. Advised to follow up with PCP and OBGYN. Patient provided with copy of ultrasound report. Findings, the need for follow-up, strict return instructions discussed with patient. *DC/Admit/Observation/Transfer Diagnosis at time of Disposition: Abdominal pain Qualifiers: Abdominal location: unspecified location Qualified Code(s): R10.9 - Unspecified abdominal pain - Discharge Dispostion Admit: No - Referrals - Patient Instructions Printed Discharge Instructions: DI for Acute Abdomen - Post Discharge Activity Forms/Work/School Notes: Back to Work
[2017-09-03 00:40] LABS: BASO % 0.3 % (0-2.0); EOS % 0.7 % (0-4.5); MCH 26.8 pg (25.7-33.7); MCHC 32.5 g/dl (32.0-36.0); MEAN CELL VOLUME 82.2 fl (80-96); MEAN PLT VOLUME 8.5 fl (7.5-11.1); NEUT % 50.6 % (42.8-82.8); PLATELET COUNT 223 K/MM3 (134-434); RDW 12.8 % (11.6-15.6); WHITE BLOOD COUNT 4.8 K/mm3 (4.0-10.0)
[2017-09-03 00:40] LABS: URINE APPEARANCE CLEAR; URINE BILIRUBIN NEGATIVE (NEGATIVE); URINE BLOOD NEGATIVE (NEGATIVE); URINE COLOR YELLOW; URINE GLUCOSE (UA) NEGATIVE (NEGATIVE); URINE KETONE NEGATIVE (NEGATIVE); URINE LEUK ESTERASE NEGATIVE (NEGATIVE); URINE NITRITE NEGATIVE (NEGATIVE); URINE PROTEIN NEGATIVE (NEGATIVE)
[2017-09-03 01:03] LABS: ALBUMIN 4.2 g/dl (3.4-5.0); CO2 28 mmol/L (21-32); GLUCOSE,RANDOM 104 mg/dL (74-106); SGOT/AST 17 U/L (15-37); SGPT/ALT 28 U/L (12-78)
[2017-09-03 01:58] LABS: ALK PHOS 53 U/L (45-117); ANION GAP 8 (8-16); BILIRUBIN,TOTAL 0.3 mg/dL (0.2-1.0); CREATININE 0.7 mg/dL (0.55-1.02); TOT PROT 7.1 g/dl (6.4-8.2)
[2017-09-03 09:29] LABS: URINE LEUK ESTERASE Negative (NEGATIVE)
== END 2017-09-03 03:05 | disposition home or self-care (01) ==
LOC: JER 22:13
DX: R10.9 Unspecified abdominal pain (principal); J45.909 Unspecified asthma, uncomplicated; I10 Essential (primary) hypertension
CPT/HCPCS: 36415; 76830-TC; 80053; 81003; 84702; 85025; 87086; 99283-25

== ENCOUNTER 2018-07-21 23:36 | Emergency (ER) | payer OTHER ==
[2018-07-21 23:39] VITALS: TEMP 98.1; BMI 21.2
--- NOTE | 2018-07-22 00:53 | PDOC ---
Attending Attestation - Resident Resident Name: Alena Verdin - ED Attending Attestation I have performed the following: I have examined & evaluated the patient, The case was reviewed & discussed with the resident, I agree w/resident's findings & plan, Exceptions are as noted - HPI HPI: 07/22/18 00:51 27 yo female p/w complaint of vague abd pain She is requesting an ultrasound to "check things out" -she states she does not know her LMP -lsat summer she did have an ectopic - Physicial Exam PE: 07/22/18 00:53 slender 27 yo female in no acute distress head ncat neck supple lungs cta b/l cvs [id number] abd nontender no cva tenderness extremities no edema, full range of motion neuro axox3,ambulatory skin warm and dry - Medical Decision Making 07/22/18 01:35 NEGATIVE TEST 07/23/18 01:49 pt discharged home
[2018-07-22 01:06] LABS: URINE APPEARANCE SLCLOUDY; URINE BILIRUBIN NEGATIVE (<2.0 mg/dL); URINE COLOR LTYELLOW; URINE GLUCOSE (UA) NEGATIVE (NEGATIVE); URINE KETONE NEGATIVE (NEGATIVE); URINE LEUK ESTERASE TRACE (NEGATIVE); URINE NITRITE NEGATIVE (NEGATIVE); URINE PROTEIN NEGATIVE (NEGATIVE); URINE UROBILINOGEN NEGATIVE mg/dL (0.2-1.0)
[2018-07-22 01:07] LABS: HCG,QUALITATIVE URINE Negative
[2018-07-22 01:14] LABS: EPI CELLS FEW /HPF (FEW); URINE BACTERIA RARE /hpf (NONE SEEN); URINE HYALINE CAST 1 /lpf; URINE MUCUS MODERATE
--- NOTE | 2018-07-22 01:49 | PDOC ---
History of Present Illness - General Chief Complaint: Pain Stated Complaint: ABD PAIN Time Seen by Provider: 07/22/18 00:44 - History of Present Illness Initial Comments: Samantha Truong is a 27yo woman with a PMH of ectopic last year who presents reporting abdominal pain since yesterday. She is unable to describe the paint other than it is a pain that "makes her want to pass out." She presented to the ED today because she also had pain when she had the ectopic . She reports that the pain started yesterday in the epigastric area. It mostly occurs in the midline, but also moves to the right and left of her abdomen. It is not related to eating, position, moving, or bowel movements. She does report some episodes of diarrhea earlier today. She denies nausea, vomiting, fevers, chills, heartburn, or chest pain. She has not tried any medications at home because she is "not a fan of medicine." Ms Truong reports that she is sexually active with one partner and does not use any method of control at this time. She was recently tested for STDs and has no concerns for infection. She is unable to remember when her LMP was. Past History - Past Medical History Allergies/Adverse Reactions: Allergies Allergy/AdvReac Type Severity Reaction Status Date / Time No Known Allergies Allergy Verified 07/21/18 23:39 Home Medications: Ambulatory Orders Cyclobenzaprine HCl [Flexeril -] 10 mg PO TID #21 tablet 03/15/18 Methylprednisolone [Medrol Dose [place]] 4 mg PO ASDIR #21 tablet 03/15/18 Anemia: No Asthma: Yes Cancer: No Cardiac Disorders: No CVA: No COPD: No CHF: No DVT: No Dementia: No Diabetes: No GI Disorders: No Disorders: No HTN: Yes (pih) Hypercholesterolemia: No Liver Disease: No Seizures: No Thyroid Disease: No - Surgical History Abdominal Surgery: Yes (ECTOPIC) Appendectomy: No Cardiac Surgery: No Cholecystectomy: No Lung Surgery: No Neurologic Surgery: No Orthopedic Surgery: No - Reproductive History (#): 4 Para: 1 Ectopic : Yes (removed) PID: Yes Therapeutic (s) & number: Yes (X2) - Immunization History Immunization Up to Date: No - Suicide/Smoking/Psychosocial Hx Smoking History: Never smoked Have you smoked in the past 12 months: No Hx Alcohol Use: No Drug/Substance Use Hx: No Substance Use Type: None Review of Systems - Review of Systems Comments:: General: No fevers, no chills, no weight or appetite change, no malaise HEENT: No changes in vision, no changes in hearing, no congestion, no sore throat CV: No chest pain, no palpitations, no LE edema Pulm: No SOB, no cough, no wheezing GI: See HPI : No frequency, no urgency, no dysuria Musc: No back pain, no joint swelling, no recent injury Skin: No rash, no lesions, no erythema Endo: No excessive thirst, no heat/cold intolerance Heme: No unusual bruising or bleeding, no swollen glands Neuro: No syncope, no numbness/tingling, no focal weakness Vasc: No claudication Psych: No recent change in mood, no SI or HI *Physical Exam - Vital Signs Last Vital Signs Temp Pulse Resp BP Pulse Ox 98.1 F 78 18 101/74 99 07/21/18 23:37 07/21/18 23:37 07/21/18 23:37 07/21/18 23:37 07/21/18 23:37 - Physical Exam Comments: General: Comfortable, no acute distress HEENT: PERRL, EOMI, MMM, voice normal, normal neck ROM, no LAD Cards: RRR, no murmur appreciated Pulm: Comfortable on room air, clear to auscultation bilaterally Abd: Soft, nontender, nondistended : No CVA tenderness Ext: Atraumatic. No LE edema. ROM intact. Strength 5/5 and equal bilaterally Vasc: Extremities WWP. Palpable radial and pedal pulses bilaterally Skin: Normal color, no rashes or lesions Neuro: A&Ox3, CN grossly intact, normal speech, motor/sensory grossly intact and symmetric Psych: Mood appropriate to situation ED Treatment Course - ADDITIONAL ORDERS Additional order review: Laboratory Results 07/22/18 00:47 Urine Color Ltyellow Urine Appearance Slcloudy Urine pH 5.0 D Ur Specific [place] 1.021 Urine Protein Negative Urine Glucose (UA) Negative Urine Ketones Negative Urine Blood 2+ H Urine Nitrite Negative Urine Bilirubin Negative Urine Urobilinogen Negative Ur Leukocyte Esterase Trace Urine WBC (Auto) 6 Urine RBC (Auto) 1 Ur Epithelial Cells Few Urine Bacteria Rare Hyaline Casts 1 Urine Mucus Moderate Urine HCG, Qual Negative Medical Decision Making - Medical Decision Making 07/22/18 00:46 Samantha Truong is a 27yo otherwise healthy woman with a h/o ectopic last year who presents with vague abdominal pain, several episodes of diarrhea, and no other associated symptoms. - Urine test sent to evaluate - Ms Truong declines any medication. 07/22/18 01:48 - UA negative - Urine test negative - Discussed results with Ms Truong. Discussed options for additional workup. Ms Truong would prefer to go home and "try to sleep it off." She states that she was mostly concerned that she had another ectopic and is reassured that her test was negative. Discussed return precautions and follow up. She states understanding and agreement. Discussed with Dr Bustillos. Alena Verdni PGY1 *DC/Admit/Observation/Transfer Diagnosis at time of Disposition: Abdominal pain - Discharge Dispostion Disposition: HOME Condition at time of disposition: Stable Decision to Admit order: No - Referrals Referrals: [facility] [place] [facility] [Provider Group] - Patient Instructions Printed Discharge Instructions: DI for Abdominal Pain-Adult Additional Instructions: Discharge Instructions: - You were seen in the ED for abdominal pain - You had a urine test and urine test. These were negative for infection or current - It is recommended that you keep track of your menstrual period so that you know when to expect your next period - You reported some diarrhea; this may be the cause of your abdominal pain - Please schedule an appointment for follow up with the internal medicine resident clinic. Their contact information is attached. - Seek immediate medical care if you have worsening abdominal pain with nausea/ vomiting, pain associated with eating, fever to 101F, or pain that does not improve with medications at home. - Post Discharge Activity
[2018-07-22 01:54] VITALS: BP 102/67; PULSE 81
== END 2018-07-22 02:06 | disposition home or self-care (01) ==
LOC: JER 23:36
DX: R10.84 Generalized abdominal pain (principal)
CPT/HCPCS: 81003; 81015; 84703; 99282-25